=== PATIENT | female | born 1990 | race Two or more races ===

== ENCOUNTER 2022-10-13 15:15 | Outpatient (CLI) | payer OTHER | END 2022-10-13 17:03 | disposition home or self-care (01) | LOC: PRENATAL 15:15 | PROVIDERS: ATTEND Obstetrics & Gynecology Maternal & Fetal Medicine | DX: O36.80X0 Pregnancy with inconclusive fetal viability, not applicable or unspecified (principal); Z3A.12 12 weeks gestation of pregnancy ==

== ENCOUNTER 2022-12-08 13:10 | Outpatient (CLI) | payer OTHER | END 2022-12-08 17:33 | disposition home or self-care (01) | LOC: PRENATAL 13:10 | PROVIDERS: ATTEND Obstetrics & Gynecology Maternal & Fetal Medicine | DX: O35.3XX0 Maternal care for (suspected) damage to fetus from viral disease in mother, not applicable or unspecified (principal); O44.00 Complete placenta previa NOS or without hemorrhage, unspecified trimester; O34.219 Maternal care for unspecified type scar from previous cesarean delivery; Z3A.20 20 weeks gestation of pregnancy ==

== ENCOUNTER 2023-03-04 14:15 | Outpatient (CLI) | payer OTHER | END 2023-03-04 16:00 | disposition home or self-care (01) | LOC: PRENATAL 14:15 | PROVIDERS: ATTEND Obstetrics & Gynecology Maternal & Fetal Medicine | DX: O26.849 Uterine size-date discrepancy, unspecified trimester (principal); O36.8199 Decreased fetal movements, unspecified trimester, other fetus; Z3A.32 32 weeks gestation of pregnancy ==

== ENCOUNTER 2023-03-31 11:08 | Outpatient (CLI) | payer OTHER | END 2023-03-31 11:09 | disposition home or self-care (01) | LOC: PRENATAL 11:08 | PROVIDERS: ATTEND Obstetrics & Gynecology Maternal & Fetal Medicine | DX: O26.849 Uterine size-date discrepancy, unspecified trimester (principal); O36.8199 Decreased fetal movements, unspecified trimester, other fetus; Z3A.36 36 weeks gestation of pregnancy ==

== ENCOUNTER 2023-04-14 09:45 | Inpatient (IN) | payer OTHER ==
[~2023-04-14] VITALS: Ht 160 cm; Wt 81.2 kg
[2023-04-14 12:55] LABS: PH,URINE 6.5 (5.0-8.0); URINE APPEARANCE Clear; URINE BILIRRUBIN Negative (NEGATIVE); URINE BLOOD Negative; URINE COLOR Yellow; URINE GLUCOSE Negative (NEGATIVE); URINE LEUKOCYTE Moderate; URINE NITRATE Negative; URINE PROTEIN Negative (NEGATIVE)
[2023-04-14 12:58] LABS: URINE BACTERIA 1009.1 uL (0.0-1933); URINE EPITHELIAL CELLS 78.1 uL (0.0-38.8); URINE RBC 5.1 uL (0.0-20.8); URINE WBC 22.8 uL (0.0-23.2)
[2023-04-14 13:11] LABS: HEMATOCRIT 32.5 % (36.0-45.00); MEAN CORPUSCULAR HEMOGLOBIN 28.4 pg (27.00-32.0); MEAN CORPUSCULAR HGB CONC 33.8 g/dl (32.0-36.0); PLATELET COUNT 268 K/uL (150-450); RED BLOOD COUNT 3.88 M/uL (4.00-6.00); RED CELL DISTRIBUTION WIDTH 14.6 % (11.5-14.5)
[2023-04-14 13:16] LABS: INR 0.95; PARTIAL THROMBOPLASTIN TIME 26.2 SECONDS (22.0-34.0)
[2023-04-14 13:22] LABS: ALBUMIN 2.8 gm/dL (3.4-5.0); BILIRUBIN TOTAL 0.42 mg/dL (0.3-1.2); CALCIUM 8.3 mg/dL (8.5-10.1); CREATININE SERUM 0.52 mg/dL (0.55-1.02); GFR 138.46; GLOBULINA 3.7 G/DL (2.4-3.5); POTASSIUM 3.81 mEq/L (3.5-5.1); TOTAL PROTEIN 6.5 gm/dL (6.4-8.2)
[2023-04-20 22:22] LABS: ABG PH 7.312 (7.35-7.45); ABG PO2 36.7 mmHg (80-100); ABG pCO2 38.2 mmHg (35-45); BASE EXCESS -6.7 mmol/l; BICARBONATE 18.9 mmol/l (23-25); SaO2 62.7 %
[2023-04-20 22:23] LABS: Tco2 20.1 mmol/l; o2 21 %
[2023-04-20 23:17] LABS: HEMATOCRIT 30.3 % (36.0-45.00); MEAN CELL VOLUME 85.9 fL (80.00-100.00); MEAN CORPUSCULAR HGB CONC 32.9 g/dl (32.0-36.0); PLATELET COUNT 242 K/uL (150-450); RED BLOOD COUNT 3.52 M/uL (4.00-6.00); RED CELL DISTRIBUTION WIDTH 14.6 % (11.5-14.5)
[2023-04-20 23:43] LABS: HEMOGLOBIN 9.9 g/dL (12.0-15.00); MEAN CORPUSCULAR HEMOGLOBIN 28.1 pg (27.00-32.0)
== END 2023-04-23 13:11 | disposition home or self-care (01) | DRG 788 ==
LOC: LDR 04-20 07:00 → O/R 04-20 10:30 → OB/GYN 04-20 18:07
PROVIDERS: ADMIT Student in an Organized Health Care Education/Training Program; ATTEND Student in an Organized Health Care Education/Training Program
PROC: 4A1HXCZ Monitoring of Products of Conception, Cardiac Rate, External Approach (ICD-10-PCS; 2023-04-20)
PROC: 10D00Z1 Extraction of Products of Conception, Low, Open Approach (ICD-10-PCS; principal; 2023-04-20 07:00)
DX: O34.211 Maternal care for low transverse scar from previous cesarean delivery (principal); O99.824 Streptococcus B carrier state complicating childbirth; Z3A.39 39 weeks gestation of pregnancy; Z37.0 Single live birth; Z20.822 Contact with and (suspected) exposure to COVID-19